=== PATIENT | male | born 1960 | race African-American/Black ===

== ENCOUNTER 2016-09-11 10:38 | Emergency (ER) | payer MEDICARE ==
[2016-09-11 11:00] VITALS: BP 119/88; PULSE 90; TEMP 97.8; BMI 27.3
[2016-09-11] MEDS ORDERED: NAPROXEN 500 MG TABLET (FP) PO ONE (12:41)
[2016-09-11] MEDS ORDERED: NAPROXEN 500 MG TABLET (FP) ONE (12:48)
--- NOTE | 2016-09-11 13:42 | PDOC ---
History of Present Illness - General Chief Complaint: Pain Stated Complaint: KNEE SWOLLEN, LEG PAIN Time Seen by Provider: 09/11/16 11:50 History Source: Patient Exam Limitations: No Limitations - History of Present Illness Initial Comments: 09/11/16 13:37 56 yr male with c/o left knee swelling and leg pain for 4 days. Pt denies direct injury, no calf pain or swelling. Pt denies abd pain no back pain or urianry complaints. no recent travel or surgery . Occurred: reports: last week Severity: reports: mild Pain Location: reports: lower extremity (left knee) Past History - Past Medical History Allergies/Adverse Reactions: Allergies Allergy/AdvReac Type Severity Reaction Status Date / Time No Known Drug Allergies Allergy Verified 09/11/16 10:56 Home Medications: Ambulatory Orders Linagliptin/Metformin HCl [Jentadueto 2.5 mg-850 mg Tab] 1 each PO BID 06/21/14 Sitagliptin Phosphate [Januvia] 50 mg PO DAILY 06/21/14 Diabetes: Yes (niddm) Kidney Stones: Yes Suicide Attempt (Hx): No Thyroid Disease: No Other medical history: [place] - Surgical History Abdominal Surgery: Yes (hernia) - Immunization History Immunization Up to Date: No - Psycho/Social/Smoking Cessation Hx Anxiety: No Suicidal Ideation: No Smoking History: Never smoked Have you smoked in the past 12 months: No Information on smoking cessation initiated: No Hx Alcohol Use: No Drug/Substance Use Hx: No Substance Use Type: Alcohol Trauma Specific PMHX - Complaint Specific PMHX Arthritis: No Back Injury: Yes (years ago) Review of Systems - Review of Systems Able to Perform ROS?: Yes Is the patient limited Kittitian proficient: No Constitutional: No: Symptoms Reported HEENTM: No: Symptoms Reported Respiratory: No: Symptoms reported Cardiac (ROS): No: Symptoms Reported ABD/GI: No: Symptoms Reported : No: Symptoms Reported Musculoskeletal: Yes: Symptoms Reported, See HPI *Physical Exam - Vital Signs Last Vital Signs Temp Pulse Resp BP Pulse Ox 97.8 F 90 18 119/88 100 09/11/16 10:56 09/11/16 10:56 09/11/16 10:56 09/11/16 10:56 09/11/16 10:56 - Physical Exam General Appearance: Yes: Nourished, Appropriately Dressed HEENT: positive: EOMI, JORDAN, Normal ENT Inspection, TMs Normal, Pharynx Normal Neck: positive: Supple. negative: Tender Respiratory/Chest: positive: Lungs Clear, Normal Breath Sounds Cardiovascular: positive: Regular Rhythm, Regular Rate Gastrointestinal/Abdominal: positive: Normal Bowel Sounds, Soft Musculoskeletal: positive: Normal Inspection Extremity: positive: Swelling (left knee ). negative: Pedal Edema, Calf Tenderness, Erythema Integumentary: positive: Normal Color, Dry, Warm Neurologic: positive: Fully Oriented, Alert, Normal Mood/Affect, Normal Response , Motor Strength / ED Treatment Course - RADIOLOGY Radiology Studies Ordered: Category Date Time Status KNEE 3 POS-LEFT [RAD] Stat Radiology 09/11/16 12:13 Completed DUPLEX VASCUL US-1 LEG [US] Stat Ultrasound 09/11/16 12:14 Completed - Medications Given in the ED: ED Medications Discontinued Medications Generic Name Dose Route Start Last Admin Trade Name Freq PRN Reason Stop Dose Admin Naproxen 500 mg 09/11/16 12:41 09/11/16 12:49 Naprosyn - PO 09/11/16 12:42 500 mg ONCE ONE Administration Medical Decision Making - Medical Decision Making 09/11/16 13:41 cc: left leg pain, left knee swelling will r/o DVT , r/o fx left knee naprosyn for pain 09/11/16 15:56 I have discussed the results of the US and the xray and that pt needs to follow with ortho . I have given pt a knee immmobilizer and states he needs to elevate and apply ice pt agrees with plan of care all questions asked and answered before discharge. pt ambulatory with the immobilizer no distress. follow up with ortho next week. pt understands the dc inst. 09/11/16 15:59 *DC/Admit/Observation/Transfer Diagnosis at time of Disposition: Knee effusion Qualifiers: Laterality: left Qualified Code(s): M25.462 - Effusion, left knee - Discharge Dispostion Disposition: HOME Condition at time of disposition: Good - Referrals Referrals: Kyle Preciado MD [Primary Care Provider] - Trung Galdamez MD [Staff Physician] - - Patient Instructions Additional Instructions: follow with the orthopedist for follow up take tylenol or motrin as directed for pain use the immobilizer while awake remove to sleep and bathe apply ice every 2hrs for 20 minutes
== END 2016-09-11 13:51 | disposition home or self-care (01) ==
LOC: JERFT 10:38
DX: M25.462 Effusion, left knee (principal); E11.9 Type 2 diabetes mellitus without complications; Z87.442 Personal history of urinary calculi
CPT/HCPCS: 73562-TC-LT; 93971-TC; 99281-25

== ENCOUNTER 2016-11-11 18:54 | Inpatient (IN) | payer MEDICARE, OTHER ==
[2016-11-11 19:28] VITALS: BMI 25.3
--- NOTE | 2016-11-11 22:12 | PDOC ---
[id number] PCP SENT/BLOOD CLOT Time Seen by Provider: 11/11/16 21:48 History Source: Patient - History of Present Illness Initial Comments: 11/11/16 22:25 56 year old male with S/P OPEN HEART SURGERY AVR on 10/12/2016 in [facility]. s/ p surgery with right groin worsening swelling. CT scan today showed large fluid collection in the right groin. patient sent in by Dr. Hernández for arterial duplex and admission for further management of care. patient reports right sided chest pain. denies headache, dizziness, SOB, fever, diaphoresis Past History - Past Medical History Allergies/Adverse Reactions: Allergies Allergy/AdvReac Type Severity Reaction Status Date / Time No Known Drug Allergies Allergy Verified 11/11/16 19:20 Home Medications: Ambulatory Orders Linagliptin/Metformin HCl [Jentadueto 2.5 mg-850 mg Tab] 2.5 - 1,000 mg PO BID 06/21/14 Sitagliptin Phosphate [Januvia] 100 mg PO DAILY 06/21/14 Aspirin [ASA -] 81 mg PO DAILY 11/12/16 Atorvastatin Ca [Lipitor] 10 mg PO HS 11/12/16 Metoprolol Succinate [Toprol Xl -] 25 mg PO DAILY 11/12/16 Pregabalin [Lyrica -] 75 mg PO BID 11/12/16 Cardiac Disorders: Yes (valve procedure 09/2016) Diabetes: Yes (niddm) Kidney Stones: Yes Suicide Attempt (Hx): No Thyroid Disease: No Other medical history: bulging disk - Surgical History Abdominal Surgery: Yes (hernia) - Immunization History Immunization Up to Date: No - Psycho/Social/Smoking Cessation Hx Anxiety: No Suicidal Ideation: No Smoking History: Never smoked Have you smoked in the past 12 months: No Hx Alcohol Use: No Drug/Substance Use Hx: No Substance Use Type: Alcohol Review of Systems - Review of Systems Able to Perform ROS?: Yes Is the patient limited Moh[place] proficient: No Constitutional: No: Symptoms Reported, See HPI, Chills, Diaphoresis, Fever, Loss of Appetite, Malaise, Night Sweats, Weakness, Weight Stable, Unintentional Wgt. Loss, Unexplained wgt Loss, Other Cardiac (ROS): Yes: Chest Pain, Edema (right groin swelling) *Physical Exam - Vital Signs Last Vital Signs Temp Pulse Resp BP Pulse Ox 98.4 F 83 18 120/64 99 11/11/16 19:17 11/11/16 19:17 11/11/16 19:17 11/11/16 19:17 11/11/16 19:17 - Physical Exam General Appearance: Yes: Appropriately Dressed Respiratory/Chest: positive: Lungs Clear, Normal Breath Sounds Cardiovascular: positive: Regular Rhythm, Regular Rate, Murmur Gastrointestinal/Abdominal: positive: Normal Bowel Sounds, Soft Extremity: positive: Normal Capillary Refill, Normal Inspection, Normal Range of Motion, Other (right groin edema.) Integumentary: positive: Normal Color, Dry, Warm Neurologic: positive: Fully Oriented, Alert, Normal Mood/Affect Heart Score/ECG Review - ECG Intrepretation Rhythm: Regular Rhythm Comment:: 11/12/16 00:20 NSR : 67 bpm possible left atrial enlargemtn. left ventricular hypertrophy. ED Treatment Course - LABORATORY CBC & Chemistry Diagram: 11/12/16 08:45 11/12/16 08:45 - RADIOLOGY Radiograph Interpretation: 11/12/16 00:10 Arterial duplex: nonspecific complex 10x7x5 cm right lower pelvic fluid collection. above the level of the common femoral artery extending at least partially into the pelvis. 11/12/16 02:53 CT pelvis: "large right inguinal and right pelvic rim enhancing fluid collection suspicious for abscess although neoplasm is not excluded. " Medical Decision Making - Medical Decision Making [address] Wilkinson. patient to be admitted for further management. recommends pelvic CT *DC/Admit/Observation/Transfer Diagnosis at time of Disposition: Right groin mass - Discharge Dispostion Disposition: TRANSFER ACUTE CARE/OTHER HOSP Admit: Yes - Referrals
--- NOTE | 2016-11-11 23:04 | PDOC ---
*Physical Exam - Vital Signs Last Vital Signs Temp Pulse Resp BP Pulse Ox 98.4 F 83 18 120/64 99 11/11/16 19:17 11/11/16 19:17 11/11/16 19:17 11/11/16 19:17 11/11/16 19:17 ED Treatment Course - LABORATORY CBC & Chemistry Diagram: 11/12/16 08:45 11/12/16 08:45 Medical Decision Making - Medical Decision Making 11/11/16 23:04 Pt seen by the Advanced Practice Provider under my direct supervision Ancillary studies reviewed I agree with plan as outlined by the Advanced Practice Provider RODRÍGUEZ Mera *DC/Admit/Observation/Transfer Diagnosis at time of Disposition: Right groin mass - Discharge Dispostion Disposition: TRANSFER ACUTE CARE/OTHER HOSP
[2016-11-11 23:55] LABS: BASOPHIL 1.2 % (0-2.0); EOSINOPHIL 3.6 % (0-4.5); MCH 27.9 pg (25.7-33.7); MCHC 32.9 g/dl (32.0-35.9); MEAN CELL VOLUME 84.7 fl (80-96); MEAN PLT VOLUME 8.4 fl (7.5-11.1); NEUTROPHILS 57.8 % (42.8-82.8); PLATELET COUNT 173 K/MM3 (134-434); RDW 14.7 % (11.9-15.9); WHITE BLOOD COUNT 5.8 K/mm3 (4.0-10.0)
[2016-11-12 00:09] LABS: INR 1.04 (0.82-1.09); PROTHROMBIN TIME (PATIENT) 11.5 SEC (9.98-11.88)
[2016-11-12 00:29] LABS: ALBUMIN 3.7 g/dl (3.4-5.0); ANION GAP 10 (8-16); BILIRUBIN,TOTAL 0.6 mg/dL (0.2-1.0); CALCIUM 9.3 mg/dL (8.5-10.1); CO2 28 mmol/L (21-32); COCKROFT - GAULT 85.72; GLUCOSE,RANDOM 89 mg/dL (74-106); MAGNESIUM 1.7 mg/dL (1.8-2.4); SGPT/ALT 11 U/L (12-78); TOT PROT 6.9 g/dl (6.4-8.2)
[2016-11-12 00:32] LABS: ALK PHOS 65 U/L (45-117); TROPONIN I < 0.02 ng/ml (0.00-0.05)
[2016-11-12 00:37] LABS: SGOT/AST 24 U/L (15-37)
[2016-11-12] MEDS: INSULIN SLIDING SCALE (NOVOLOG) 1 VIAL SQ SCH ×2 (06:35→11:30)
[2016-11-12] MEDS ORDERED: sitaGLIPtin PHOSPHATE 50 MG TABLET PO SCH (07:00)
--- NOTE | 2016-11-12 09:00 | PN ---
Progress Note (short form) - Note Progress Note: Consult Dictated Increasing swelling in right groin s/p AVR at [facility] CT and duplex US done: rim enhancing fluid collection in right inguinal area, does not appear to be pseudoaneurysm. No evidence vascular compromise on exam. REC: Case discussed with Interventional Cardiology at [place] To be transferred there with copies of US and CT to be reviewed with possible IR vs Surgical intervention for diagnosis/drainage. Discussed with patient.
[2016-11-12 09:12] LABS: BASOPHIL 0.7 % (0-2.0); EOSINOPHIL 3.1 % (0-4.5); MCH 28.5 pg (25.7-33.7); MCHC 33.9 g/dl (32.0-35.9); MEAN CELL VOLUME 84.1 fl (80-96); MEAN PLT VOLUME 8.2 fl (7.5-11.1); NEUTROPHILS 62.8 % (42.8-82.8); PLATELET COUNT 152 K/MM3 (134-434); RDW 14.6 % (11.9-15.9); WHITE BLOOD COUNT 5.3 K/mm3 (4.0-10.0)
[2016-11-12 09:39] LABS: ALBUMIN 3.5 g/dl (3.4-5.0); ANION GAP 9 (8-16); BILIRUBIN,TOTAL 0.6 mg/dL (0.2-1.0); CALCIUM 8.9 mg/dL (8.5-10.1); CO2 26 mmol/L (21-32); COCKROFT - GAULT 107.16; CREATININE 0.8 mg/dL (0.7-1.3); GLUCOSE,RANDOM 109 mg/dL (74-106); SGPT/ALT 12 U/L (12-78); TOT PROT 6.6 g/dl (6.4-8.2)
[2016-11-12 09:40] LABS: ALK PHOS 60 U/L (45-117); SGOT/AST 16 U/L (15-37)
--- NOTE | 2016-11-12 09:42 | CONS ---
CARDIOLOGY CONSULTATION DATE OF CONSULTATION: 11/12/2016 REQUESTED BY: Ania Estrada MD REASON FOR CONSULTATION: Fluid collection in the right inguinal region status post aortic valve surgery. HISTORY OF PRESENT ILLNESS: Mr. Tyson is a 56-year-old male status post bioprosthetic aortic valve replacement at [facility] who presented to primary care physician yesterday with increasing right inguinal fullness and swelling. An abdominal ultrasound had been performed in the office, indicating a fluid collection in the right groin. The patient was then referred to the emergency room for further imaging. Yesterday, in the ER he had a duplex scan of the lower extremity, duplex lower extremity arterial ultrasound showing a nonspecific 10 x 7 x 5 cm right lower pelvic fluid collection for which a pelvic CT was recommended. He then underwent a pelvic CT with contrast showing a large right inguinal and right pelvic rim- enhancing fluid collection measuring 9.6 x 4 cm. The differential diagnosis included an abscess versus a lymphocele versus a neoplasm. The patient has a normal white blood cell count and has been afebrile. He denies fevers or chills. He denies pain or temperature changes in his leg. He feels a fullness in the right groin and has been getting steadily worse, especially over the last 1-2 weeks. He denies anginal pain but has had some persistent sternal pain which has been worse over the last one week; denies shortness of breath, palpitations. No syncope. PAST MEDICAL HISTORY: As above. Status post aVR approximately 6-[address] [facility] for aortic regurgitation. He also is diabetic and has a history of hyperlipidemia. ALLERGIES: He has no allergies. HOME MEDICATIONS: Januvia 100 mg daily, Lyrica 75 mg p.o. b.i.d., Toprol XL 25 mg daily, Jentadueto, Lipitor 10 mg q h.s. and aspirin 81 mg daily. FAMILY HISTORY: Noncontributory to this presentation. SOCIAL HISTORY: . Has a daughter. Denies tobacco, alcohol or illegal drugs. PHYSICAL EXAM: General: Alert and oriented. Vital signs: Temperature 98 Fahrenheit, pulse 60, blood pressure 143/88. Oxygen saturation 100% on room air. Weight 162. HEENT: Anicteric. Neck no bruits. Heart: S1, S2/regular. Soft, systolic murmur right sternal border. The median sternotomy has a 1 cm area of non-healed skin at the very top. There is no pus currently and there is mild tenderness to palpation. Chest: Clear. Abdomen: Soft. The right groin is slightly full. Pulse is palpable. There is no bruit. The distal extremity is warm with good dorsalis pedis pulse. LABS: White count 5.8. Hematocrit 36.6. Platelets 173. Neutrophils 57.8. INR 1.04. Sodium 140. Potassium 147. Creatinine 1. Magnesium 1.7. LFTs were normal. CK and troponin normal. Albumin 3.7. Imaging is as above. EKG sinus at 67 beats per minute with left atrial enlargement, left ventricular hypertrophy and nonspecific T-wave changes. ASSESSMENT: Increasing right inguinal swelling status post aortic valve replacement with CT of the pelvis showing a large rim-enhancing lesion for which the differential includes abscess versus lymphocele versus malignancy. It does not appear to be a pseudoaneurysm, and there is no evidence of vascular compromise on exam. In addition, I have concern about the possibility of a sternal wound infection. PLAN: After discussion with Interventional Cardiology at [facility], the plan will be to make copies of his imaging studies and transfer him there for the studies to be reviewed with possible intervention: IR drain versus surgical exploration for diagnosis and possible evacuation. CT surgery to examine the sternal incision and decide on further imaging/ work up. MIKE LADD M.D. [id number] MTDD
--- NOTE | 2016-11-12 09:59 | CONSULT ---
Consult - Alcohol/Substance Use Hx Alcohol Use: No - Smoking History Smoking history: Never smoked Have you smoked in the past 12 months: No Home Medications - Allergies Allergies/Adverse Reactions: Allergies Allergy/AdvReac Type Severity Reaction Status Date / Time No Known Drug Allergies Allergy Verified 11/11/16 19:20 - Home Medications Home Medications: Ambulatory Orders Linagliptin/Metformin HCl [Jentadueto 2.5 mg-850 mg Tab] 2.5 - 1,000 mg PO BID 06/21/14 Sitagliptin Phosphate [Januvia] 100 mg PO DAILY 06/21/14 Aspirin [ASA -] 81 mg PO DAILY 11/12/16 Atorvastatin Ca [Lipitor] 10 mg PO HS 11/12/16 Metoprolol Succinate [Toprol Xl -] 25 mg PO DAILY 11/12/16 Pregabalin [Lyrica -] 75 mg PO BID 11/12/16 Physical Exam Vital Signs: Vital Signs Temperature 98 F 11/12/16 07:41 Pulse Rate 63 11/12/16 07:41 Respiratory Rate 20 11/12/16 07:59 Blood Pressure 143/88 11/12/16 07:41 O2 Sat by Pulse Oximetry (%) 100 11/12/16 07:59 Labs: CBC, BMP 11/12/16 08:45 11/12/16 08:45 Assessment/Plan VAscular Surgery 6 year old male with S/P OPEN HEART SURGERY AVR on 10/12/2016 in [facility]. s/ p surgery with right groin worsening swelling. CT scan today showed large fluid collection in the right groin. patient sent in by Dr. Hernández for arterial duplex and admission for further management of care. patient reports right sided chest pain. denies headache, dizziness, SOB, fever, diaphoresis Past History - Past Medical History Allergies/Adverse Reactions: Allergies Allergy/AdvReac Type Severity Reaction Status Date / Time No Known Drug Allergies Allergy Verified 11/11/16 19:20 Home Medications: Ambulatory Orders Linagliptin/Metformin HCl [Jentadueto 2.5 mg-850 mg Tab] 1 each PO BID 06/21/14 Sitagliptin Phosphate [Januvia] 50 mg PO DAILY 06/21/14 Cardiac Disorders: Yes (valve procedure 09/2016) Diabetes: Yes (niddm) Kidney Stones: Yes Suicide Attempt (Hx): No Thyroid Disease: No Other medical history: bulging disk - Surgical History Abdominal Surgery: Yes (hernia) - Immunization History Immunization Up to Date: No - Psycho/Social/Smoking Cessation Hx Anxiety: No Suicidal Ideation: No Smoking History: Never smoked Have you smoked in the past 12 months: No Hx Alcohol Use: No Drug/Substance Use Hx: No Substance Use Type: Alcohol PE Head - NC/At Lung - CTA heart - RRR abd - soft,nt,nd ext - right groin swelling. Palpable pulse. US reviewed -- no evidence of pseudoaneurysm. A/P S/P AVR Right groin swelling. US negative for pseudoaneurysm. Cardiology on case and transferring pt to [facility] for further workup. Alexx Crooks DO
[2016-11-12] MEDS ORDERED: PATIENT'S OWN MEDICATION (NON-FORMULARY) (Linagliptin/Metformin Hcl [Jentadueto 2.5 Mg-850 PO SCH (10:00)
--- NOTE | 2016-11-12 11:37 | EKG ---
Test Reason : Blood Pressure : / mmHG Vent. Rate : 067 BPM Atrial Rate : 067 BPM P-R Int : 166 ms QRS Dur : 084 ms QT Int : 420 ms P-R-T Axes : 062 -02 206 degrees QTc Int : 443 ms NORMAL SINUS RHYTHM POSSIBLE LEFT ATRIAL ENLARGEMENT LEFT VENTRICULAR HYPERTROPHY T WAVE ABNORMALITY, CONSIDER INFEROLATERAL ISCHEMIA ABNORMAL ECG WHEN COMPARED WITH ECG OF 21-JUN-2014 09:16, NO SIGNIFICANT CHANGE WAS FOUND Confirmed by FANNIE PERALTA, ÁNGEL ([id number]) on 11/12/2016 11:37:18 AM Referred By: Confirmed By:ÁNGEL GRECO MD
[2016-11-12 15:08] VITALS: BP 149/87; PULSE 67; TEMP 97
--- NOTE | 2016-11-13 09:30 | EKG ---
Test Reason : Blood Pressure : / mmHG Vent. Rate : 078 BPM Atrial Rate : 078 BPM P-R Int : 156 ms QRS Dur : 072 ms QT Int : 358 ms P-R-T Axes : 068 -14 214 degrees QTc Int : 408 ms NORMAL SINUS RHYTHM POSSIBLE LEFT ATRIAL ENLARGEMENT NONSPECIFIC T WAVE ABNORMALITY ABNORMAL ECG Confirmed by MIKE LADD MD ([id number]) on 11/13/2016 9:30:14 AM Referred By: Confirmed By:MIKE LADD MD
== END 2016-11-12 15:13 | disposition short-term general hospital (02) | DRG 315 ==
LOC: JER 18:54 → JERBED 11-12 00:52 → UNDOADMIN 11-12 01:07 → JERBED 11-12 01:07 → J8W 11-12 05:31
PROVIDERS: ADMIT Internal Medicine; ATTEND Internal Medicine
DX: I97.89 Other postprocedural complications and disorders of the circulatory system, not elsewhere classified (principal); L02.214 Cutaneous abscess of groin; E11.9 Type 2 diabetes mellitus without complications; N20.0 Calculus of kidney; Z95.1 Presence of aortocoronary bypass graft; Y83.8 Other surgical procedures as the cause of abnormal reaction of the patient, or of later complication, without mention of misadventure at the time of the procedure
CPT/HCPCS: 36415; 71020-TC; 72193-TC; 80053; 82550; 83735; 84484; 85025; 85610; 86850; 86900; 86901; 93005; 93010; 93926-TC; 99285-25

== ENCOUNTER 2017-03-09 20:37 | Emergency (ER) | payer MEDICARE, OTHER ==
[2017-03-09 20:48] VITALS: BP 175/84; PULSE 73; TEMP 98.4; BMI 27.6
[2017-03-09] MEDS ORDERED: ONDANSETRON 4 MG/2 ML VIAL IVPB ONE (20:53)
[2017-03-09] MEDS ORDERED: SODIUM CHLORIDE 1,000 ML IV STA (20:53)
[2017-03-09] MEDS ORDERED: ONDANSETRON 4 MG/2 ML VIAL ONE (21:23)
--- NOTE | 2017-03-09 21:35 | PDOC ---
History of Present Illness <Paradise Mera - Last Filed: 03/09/17 21:35> - General History Source: Patient Exam Limitations: No Limitations - History of Present Illness Initial Comments: 03/09/17 21:37 The patient is a 57 year old male with past medical history of NIDDM, hypertension and pancreatitis who presents to the ED with complaints of nausea, vomiting, and abdominal pain that began two days ago. He locates the pain to his left lower quadrant and reports he hasnt been able to hold down food. He also complains of epigastric pain that resembles heartburn. He states that his symptoms resemble those that he experienced when he had pancreatitis. He denies any diarrhea, constipation, hematemesis. He denies any chest pain, SOB, or urinary complaints. Surgeries: Aortic valve replacement in September 2016 Social: Last drink was yesterday PCP: Kyle Preciado Hide Curer: Thania Layton <Haley Caceres - Last Filed: 03/10/17 01:07> - General Chief Complaint: Pain Stated Complaint: ABDOMINAL PAIN/VOMITING/NAUSEA Time Seen by Provider: 03/09/17 20:43 Past History - Past Medical History Cardiac Disorders: Yes (valve procedure 09/2016) Diabetes: Yes (niddm) Kidney Stones: Yes Suicide Attempt (Hx): No Thyroid Disease: No - Surgical History Abdominal Surgery: Yes (hernia) - Immunization History Immunization Up to Date: No - Psycho/Social/Smoking Cessation Hx Anxiety: No Suicidal Ideation: No Smoking History: Never smoked Have you smoked in the past 12 months: No Information on smoking cessation initiated: No Hx Alcohol Use: No Drug/Substance Use Hx: No Substance Use Type: Alcohol Hx Substance Use Treatment: No <Paradise Mera - Last Filed: 03/09/17 21:35> <Haley Caceres - Last Filed: 03/10/17 01:07> - Past Medical History Allergies/Adverse Reactions: Allergies Allergy/AdvReac Type Severity Reaction Status Date / Time No Known Drug Allergies Allergy Verified 03/09/17 20:46 Home Medications: Ambulatory Orders Linagliptin/Metformin HCl [Jentadueto 2.5 mg-850 mg Tab] 2.5 - 1,000 mg PO BID 06/21/14 Sitagliptin Phosphate [Januvia] 100 mg PO DAILY 06/21/14 Aspirin [ASA -] 81 mg PO DAILY 11/12/16 Atorvastatin Ca [Lipitor] 10 mg PO HS 11/12/16 Metoprolol Succinate [Toprol Xl -] 25 mg PO DAILY 11/12/16 Pregabalin [Lyrica -] 75 mg PO BID 11/12/16 Review of Systems - Review of Systems Able to Perform ROS?: Yes Comments:: 03/09/17 21:39 CONSTITUTIONAL: Absent: fever, chills, diaphoresis, generalized weakness, malaise, loss of appetite HEENT: Absent: rhinorrhea, nasal congestion, throat pain, throat swelling, difficulty swallowing, mouth swelling, ear pain, eye pain, visual Changes CARDIOVASCULAR: Absent: chest pain, syncope, palpitations, irregular heart rate, lightheadedness , peripheral edema RESPIRATORY: Absent: cough, shortness of breath, dyspnea with exertion, orthopnea, wheezing, stridor, hemoptysis GASTROINTESTINAL: Present: abdominal pain, nausea, vomiting, epigastric pain, heartburn Absent:abdominal distension, diarrhea, constipation,melena, hematochezia GENITOURINARY: Absent: dysuria, frequency, urgency, hesitancy, hematuria, flank pain, genital pain MUSCULOSKELETAL: Absent: myalgia, arthralgia, joint swelling SKIN: Absent: rash, itching, pallor HEMATOLOGIC/IMMUNOLOGIC: Absent: easy bleeding, easy bruising, lymphadenopathy, frequent infections ENDOCRINE: Absent: unexplained weight gain, unexplained weight loss, heat intolerance, cold intolerance NEUROLOGIC: Absent: headache, focal weakness or paresthesias, dizziness, unsteady gait, seizure, mental status changes, bladder or bowel incontinence PSYCHIATRIC: Absent: anxiety, depression, suicidal or homicidal ideation, hallucinations. All Other Systems: Reviewed and Negative <Haley Caceres - Last Filed: 03/10/17 01:07> *Physical Exam - Vital Signs Last Vital Signs Temp Pulse Resp BP Pulse Ox 98.4 F 73 14 175/84 100 03/09/17 20:47 03/09/17 20:47 03/09/17 20:47 03/09/17 20:47 03/09/17 20:47 <Paradise Mera - Last Filed: 03/09/17 21:35> - Vital Signs Last Vital Signs Temp Pulse Resp BP Pulse Ox 98.4 F 73 14 175/84 100 03/09/17 20:47 03/09/17 20:47 03/09/17 20:47 03/09/17 20:47 03/09/17 20:47 - Physical Exam Comments: 03/09/17 21:40 GENERAL: Well developed, well nourished. Awake and alert. No acute distress. HEENT: Normocephalic, atraumatic. PERRLA, EOMI. No conjunctival pallor. Sclera are non- icteric. Moist mucous membranes. Oropharynx is clear. NECK: Supple. Full ROM. No JVD. Carotid pulses 2+ and symmetric, without bruits. No thyromegaly. No lymphadenopathy. CARDIOVASCULAR: Regular rate and rhythm. No murmurs, rubs, or gallops. Distal pulses are 2+ and symmetric. PULMONARY: No evidence of respiratory distress. Lungs clear to auscultation bilaterally. No wheezing, rales or rhonchi. ABDOMINAL: Soft. LUQ tenderness. Non-distended. No rebound or guarding. No organomegaly. Normoactive bowel sounds. MUSCULOSKELETAL Normal range of motion at all joints. No bony deformities or tenderness. No CVA tenderness. EXTREMITIES: No cyanosis. No clubbing. No edema. No calf tenderness. SKIN: Warm and dry. Normal capillary refill. No rashes. No jaundice. NEUROLOGICAL: Alert, awake, appropriate. Cranial nerves 2-12 intact. No deficits to light touch and temperature in face, upper extremities and lower extremities. No motor deficits in the in face, upper extremities and lower extremities. Normoreflexic in the upper and lower extremities. Normal speech. Toes are down-going bilaterally. Gait is normal without ataxia. PSYCHIATRIC: Cooperative. Good eye contact. Appropriate mood and affect. <Haley Caceres - Last Filed: 03/10/17 01:07> Heart Score/ECG Review - ECG Intrepretation Comment:: 03/09/17 23:58 ECG obtained at 21:33 normal sinus at 72 bpm possible left atrial enlargement, T wave abnormality <Haley Caceres - Last Filed: 03/10/17 01:07> ED Treatment Course - LABORATORY CBC & Chemistry Diagram: 03/09/17 21:15 03/09/17 21:15 - Medications Given in the ED: ED Medications Discontinued Medications Generic Name Dose Route Start Last Admin Trade Name Freq PRN Reason Stop Dose Admin Ondansetron HCl 4 mg 03/09/17 20:53 03/09/17 21:33 Zofran Injection IVPB 03/09/17 20:54 4 mg ONCE ONE Administration <Paradise Mera - Last Filed: 03/09/17 21:35> - LABORATORY CBC & Chemistry Diagram: 03/09/17 21:15 03/09/17 21:15 - RADIOLOGY Radiograph Interpretation: 03/10/17 01:06 Exam: Contrast-enhanced CT abdomen and pelvis Images: 481 Clinical indication: Left upper quadrant pain and vomiting. Findings: Multiple images are degraded by motion artifact. The lung bases are grossly clear. The upper abdominal viscera have a normal appearance. The adrenal glands are unremarkable. The kidneys have a normal appearance and enhance symmetrically. There is no evidence of urinary tract obstruction. The gastrointestinal tract does not appear obstructed. No thickened or dilated bowel is seen. The appendix has a normal appearance there is no mesenteric infiltration. The urinary bladder, prostate and seminal vesicles are unremarkable. Scarring is noted in the right groin. Surgical clips are noted in the right groin. No abdominal or pelvic adenopathy is seen. No lytic or blastic destructive osseous lesions are seen. Impression: No inflammatory process identified in the abdomen or pelvis. No abdominal mass, adenopathy or collection seen. No explanation seen for this patient's abdominal pain. THIS DOCUMENT HAS BEEN ELECTRONICALLY SIGNED Rocky Padilla M.D. - Medications Given in the ED: ED Medications Discontinued Medications Generic Name Dose Route Start Last Admin Trade Name Freq PRN Reason Stop Dose Admin Ondansetron HCl 4 mg 03/09/17 20:53 03/09/17 21:33 Zofran Injection IVPB 03/09/17 20:54 4 mg ONCE ONE Administration <Haley Caceres - Last Filed: 03/10/17 01:07> *DC/Admit/Observation/Transfer <Paradise Mera - Last Filed: 03/09/17 21:35> - Attestations Scribe Attestion: 03/09/17 21:41 Documentation prepared by Haley Caceres, acting as medical diagnostic radiographer for Paradise Mera MD. <Haley Caceres - Last Filed: 03/10/17 01:07> - Referrals Referrals: Kyle Preciado MD [Primary Care Provider] -
[2017-03-09 21:36] LABS: BASOPHIL 0.2 % (0-2.0); EOSINOPHIL 0.4 % (0-4.5); MCH 30.5 pg (25.7-33.7); MCHC 35.6 g/dl (32.0-35.9); MEAN CELL VOLUME 85.5 fl (80-96); NEUTROPHILS 86.7 % (42.8-82.8); PLATELET COUNT 109 K/MM3 (134-434); RDW 17.3 % (11.9-15.9); WHITE BLOOD COUNT 5.7 K/mm3 (4.0-10.0)
[2017-03-09] MEDS ORDERED: HYDROmorphone HCL CARPU-JECT 1 MG/1 ML DISP.SYRIN IVPUSH ONE (22:01)
[2017-03-09] MEDS ORDERED: HYDROmorphone HCL CARPU-JECT 1 MG/1 ML DISP.SYRIN ONE (22:04)
[2017-03-09 22:14] LABS: ALBUMIN 4.1 g/dl (3.4-5.0); ALK PHOS 57 U/L (45-117); ANION GAP 5 (8-16); BILIRUBIN,TOTAL 1.8 mg/dL (0.2-1.0); CALCIUM 9.2 mg/dL (8.5-10.1); CO2 30 mmol/L (21-32); CREATININE 0.9 mg/dL (0.7-1.3); GLUCOSE,RANDOM 153 mg/dL (74-106); SGOT/AST 31 U/L (15-37); SGPT/ALT 23 U/L (12-78); TOT PROT 7.2 g/dl (6.4-8.2)
[2017-03-09 22:16] LABS: CPK 405 IU/L (39-308); TROPONIN I < 0.02 ng/ml (0.00-0.05)
[2017-03-09] MEDS ORDERED: ACETAMINOPHEN 500 MG TABLET (FP) PO STA (23:04)
[2017-03-09] MEDS ORDERED: MAG HYDROX/AL HYDROX/SIMETH 355 ML ORAL.SUSP PO ONE (23:06)
[2017-03-09] MEDS ORDERED: ACETAMINOPHEN 325 MG TABLET (FP) ONE (23:26)
[2017-03-10 04:07] LABS: CPK 318 IU/L (39-308); TROPONIN I < 0.02 ng/ml (0.00-0.05)
--- NOTE | 2017-03-10 04:46 | PDOC ---
*Physical Exam - Vital Signs Last Vital Signs Temp Pulse Resp BP Pulse Ox 98.4 F 73 14 175/84 100 03/09/17 20:47 03/09/17 20:47 03/09/17 20:47 03/09/17 20:47 03/09/17 20:47 ED Treatment Course - LABORATORY CBC & Chemistry Diagram: 03/09/17 21:15 03/09/17 21:15 - ADDITIONAL ORDERS Additional order review: Laboratory Results 03/10/17 03/09/17 03/09/17 03:03 21:15 21:15 Sodium Potassium Chloride Carbon Dioxide Anion Gap BUN Creatinine Creat Clearance w eGFR Random Glucose Lactic Acid 1.4 Calcium Total Bilirubin AST ALT Alkaline Phosphatase Creatine Kinase 318 H 405 H Creatine Kinase Index 0.7 0.6 CK-MB (CK-2) 2.297 2.820 Troponin I < 0.02 < 0.02 Total Protein Albumin Lipase 03/09/17 21:15 Sodium 138 Potassium 4.3 Chloride 103 Carbon Dioxide 30 Anion Gap 5 L BUN 9 Creatinine 0.9 Creat Clearance w eGFR > 60 Random Glucose 153 H D Lactic Acid Calcium 9.2 Total Bilirubin 1.8 H D AST 31 D ALT 23 D Alkaline Phosphatase 57 Creatine Kinase Creatine Kinase Index CK-MB (CK-2) Troponin I Total Protein 7.2 Albumin 4.1 Lipase 63 L 03/09/17 21:15 RBC 3.89 L MCV 85.5 MCHC 35.6 RDW 17.3 H D MPV 8.0 Neutrophils % 86.7 H D Lymphocytes % 6.9 L D Monocytes % 5.8 Eosinophils % 0.4 D Basophils % 0.2 - Medications Given in the ED: ED Medications Discontinued Medications Generic Name Dose Route Start Last Admin Trade Name Paulinoq PRN Reason Stop Dose Admin Acetaminophen 975 mg 03/09/17 23:04 03/09/17 23:29 Tylenol - PO 03/09/17 23:05 975 mg ONCE STA Administration Al Hydroxide/Mg Hydroxide 30 ml 03/09/17 23:06 03/09/17 23:29 Mylanta Suspension - PO 03/09/17 23:07 30 ml ONCE ONE Administration Hydromorphone HCl 0.5 mg 03/09/17 22:01 03/09/17 22:14 Dilaudid Injection - IVPUSH 03/09/17 22:02 0.5 mg ONCE ONE Administration Sodium Chloride 1,000 mls @ 1,000 mls/hr 03/09/17 20:53 03/09/17 21:32 Normal Saline - IV 03/09/17 21:52 1,000 mls/hr ASDIR STA Administration Ondansetron HCl 4 mg 03/09/17 20:53 03/09/17 21:33 Zofran Injection IVPB 03/09/17 20:54 4 mg ONCE ONE Administration *DC/Admit/Observation/Transfer Diagnosis at time of Disposition: Abdominal pain Qualifiers: Abdominal location: generalized Qualified Code(s): R10.84 - Generalized abdominal pain - Discharge Dispostion Disposition: HOME Condition at time of disposition: Stable Admit: No - Referrals Referrals: Kyle Preciado MD [Primary Care Provider] - - Patient Instructions Printed Discharge Instructions: DI for Abdominal Pain-Adult - Post Discharge Activity
--- NOTE | 2017-03-10 14:41 | EKG ---
Test Reason : Blood Pressure : / mmHG Vent. Rate : 072 BPM Atrial Rate : 072 BPM P-R Int : 148 ms QRS Dur : 080 ms QT Int : 406 ms P-R-T Axes : 077 010 226 degrees QTc Int : 444 ms NORMAL SINUS RHYTHM POSSIBLE LEFT ATRIAL ENLARGEMENT T WAVE ABNORMALITY, CONSIDER INFERIOR ISCHEMIA T WAVE ABNORMALITY, CONSIDER ANTEROLATERAL ISCHEMIA ABNORMAL ECG WHEN COMPARED WITH ECG OF 11-NOV-2016 23:56, T WAVE INVERSION MORE EVIDENT IN INFERIOR LEADS T WAVE INVERSION NOW EVIDENT IN ANTERIOR LEADS Confirmed by LISA NEFF MD ([id number]) on 03/10/2017 2:41:32 PM Referred By: Confirmed By:LISA NEFF MD
== END 2017-03-10 05:01 | disposition home or self-care (01) ==
LOC: JER 20:37
PROC: 3E033NZ Introduction of Analgesics, Hypnotics, Sedatives into Peripheral Vein, Percutaneous Approach (ICD-10-PCS; principal; 2017-03-09)
PROC: 3E033GC Introduction of Other Therapeutic Substance into Peripheral Vein, Percutaneous Approach (ICD-10-PCS; 2017-03-09)
PROC: 3E0337Z Introduction of Electrolytic and Water Balance Substance into Peripheral Vein, Percutaneous Approach (ICD-10-PCS; 2017-03-09)
DX: R10.84 Generalized abdominal pain (principal); I10 Essential (primary) hypertension; E11.9 Type 2 diabetes mellitus without complications; Z87.19 Personal history of other diseases of the digestive system; Z87.442 Personal history of urinary calculi; Z79.82 Long term (current) use of aspirin; Z79.84 Long term (current) use of oral hypoglycemic drugs
CPT/HCPCS: 36415; 74177-TC; 80053; 82553; 83605; 83690; 84484; 85025; 93005; 93010; 99283-25

== ENCOUNTER 2017-06-28 14:36 | Inpatient (IN) | payer MEDICARE, OTHER ==
[2017-06-28] MEDS ORDERED: ONDANSETRON 4 MG/2 ML VIAL IVPUSH ONE (15:58)
[2017-06-28] MEDS ORDERED: KETOROLAC TROMETHAMINE 30 MG/1 ML VIAL IM ONE (15:58)
[2017-06-28] MEDS ORDERED: SODIUM CHLORIDE 1,000 ML IV STA ×3 (15:59→22:04)
--- NOTE | 2017-06-28 16:01 | PDOC ---
History of Present Illness - General Chief Complaint: Pain Stated Complaint: ABD PAIN Time Seen by Provider: 06/28/17 15:54 History Source: Patient - History of Present Illness Timing/Duration: reports: constant Quality: reports: severe Abdominal Pain Onset Location: reports: generalized abdomen Past History - Past Medical History Allergies/Adverse Reactions: Allergies Allergy/AdvReac Type Severity Reaction Status Date / Time No Known Drug Allergies Allergy Verified 06/28/17 14:46 Home Medications: Ambulatory Orders Jentadueto 2.5 mg-500 mg Tab PO BID 06/29/17 Metoprolol Succinate [Toprol XL -] 12.5 mg PO DAILY 06/29/17 Cardiac Disorders: Yes (valve procedure 09/2016) COPD: No Diabetes: Yes (niddm) HTN: Yes Hypercholesterolemia: Yes Kidney Stones: Yes Thyroid Disease: No - Surgical History Abdominal Surgery: Yes (hernia) Cardiac Surgery: Yes (09/18) - Immunization History Immunization Up to Date: No - Suicide/Smoking/Psychosocial Hx Smoking History: Never smoked Have you smoked in the past 12 months: No Hx Alcohol Use: No Drug/Substance Use Hx: No Substance Use Type: Alcohol Hx Substance Use Treatment: No Review of Systems - Review of Systems Constitutional: No: Chills, Fever Respiratory: No: Shortness of Breath Cardiac (ROS): No: Chest Pain ABD/GI: Yes: Nausea, Vomiting, Abdominal cramping. No: Diarrhea : No: Dysuria *Physical Exam - Vital Signs Last Vital Signs Temp Pulse Resp BP Pulse Ox 98 F 74 18 132/72 99 06/28/17 14:47 06/28/17 14:47 06/28/17 14:47 06/28/17 14:47 06/28/17 14:47 - Physical Exam General Appearance: Yes: Appropriately Dressed, Mild Distress HEENT: positive: Normal Voice Neck: positive: Supple Respiratory/Chest: positive: Lungs Clear, Normal Breath Sounds. negative: Respiratory Distress Cardiovascular: positive: Regular Rate, S1, S2 Gastrointestinal/Abdominal: positive: Normal Bowel Sounds, Tender (poorly localized ttp), Soft. negative: Guarding, Rebound Musculoskeletal: negative: CVA Tenderness Integumentary: positive: Dry, Warm Neurologic: positive: Fully Oriented, Alert, Normal Mood/Affect ED Treatment Course - LABORATORY CBC & Chemistry Diagram: 06/29/17 08:25 06/29/17 08:25 Medical Decision Making - Medical Decision Making 06/28/17 15:59 57-year-old male history of NIDDM, CABG, alcohol abuse, recurrent pancreatitis, here with diffuse abdominal pain with nausea, vomiting 3 days. No changes in BM , f/c. States symptoms similar to his pancreatitis, which he has not had in several years despite continuing to drink. Denies history of gallstones. No abdominal surgeries in the past. Was seen for similar symptoms ~3 months ago and sent home w/ protonix and zofran. CT a/p was negative at the time See exam Recurrent pancreatitis vs gastritis H/o ETOH abuse -pain control -zofran -IVF -labs -US -dispo pending 06/28/17 19:00 Lactate erroneously ordered on pt but came back at 2.4. Of note, there was no concern for sepsis in this pt. Rest of labs and UA negative. US pending. Will give IVF and rpt lactate. Pt signed out to RODRÍGUEZ Mera at this point *DC/Admit/Observation/Transfer Diagnosis at time of Disposition: Lactic acidosis Abdominal pain Qualifiers: Abdominal location: epigastric Qualified Code(s): R10.13 - Epigastric pain - Referrals - Patient Instructions - Post Discharge Activity
[2017-06-28] MEDS ORDERED: KETOROLAC TROMETHAMINE 30 MG/1 ML VIAL ONE (16:38)
[2017-06-28] MEDS ORDERED: ONDANSETRON 4 MG/2 ML VIAL ONE (16:38)
[2017-06-28] MEDS ORDERED: KETOROLAC TROMETHAMINE 30 MG/1 ML VIAL IVPUSH ONE (17:00)
--- NOTE | 2017-06-28 17:03 | PDOC ---
*Physical Exam - Vital Signs Last Vital Signs Temp Pulse Resp BP Pulse Ox 98 F 74 18 132/72 99 06/28/17 14:47 06/28/17 14:47 06/28/17 14:47 06/28/17 14:47 06/28/17 14:47 Medical Decision Making - Medical Decision Making 06/28/17 17:03 Pt seen by the Advanced Practice Provider under my direct supervision Ancillary studies reviewed I agree with plan as outlined by the Advanced Practice Provider OUMOU Sky *DC/Admit/Observation/Transfer - Referrals Referrals: Kyle Preciado MD [Primary Care Provider] - - Patient Instructions - Post Discharge Activity
[2017-06-28 17:08] LABS: BASOPHIL 0.4 % (0-2.0); EOSINOPHIL 0.4 % (0-4.5); MCH 32.1 pg (25.7-33.7); MEAN CELL VOLUME 91.9 fl (80-96); MEAN PLT VOLUME 8.5 fl (7.5-11.1); NEUTROPHILS 87.1 % (42.8-82.8); PLATELET COUNT 111 K/MM3 (134-434); RDW 15.6 % (11.9-15.9)
[2017-06-28 17:39] LABS: ALBUMIN 4.4 g/dl (3.4-5.0); ANION GAP 7 (8-16); CO2 27 mmol/L (21-32); CREATININE 1.1 mg/dL (0.7-1.3); GLUCOSE,RANDOM 208 mg/dL (74-106); SGOT/AST 27 U/L (15-37); SGPT/ALT 26 U/L (12-78)
[2017-06-28] MEDS ORDERED: FAMOTIDINE IV 20 MG in DEXTROSE 5%-WATER - 100 ML IVPB ONE (17:40)
[2017-06-28 17:41] LABS: ALK PHOS 57 U/L (45-117); BILIRUBIN,TOTAL 1.1 mg/dL (0.2-1.0); TOT PROT 8.1 g/dl (6.4-8.2)
[2017-06-28] MEDS ORDERED: MAG HYDROX/AL HYDROX/SIMETH 355 ML ORAL.SUSP PO ONE (17:41)
[2017-06-28 17:55] LABS: URINE APPEARANCE CLEAR; URINE BILIRUBIN NEGATIVE (NEGATIVE); URINE BLOOD NEGATIVE (NEGATIVE); URINE COLOR LTYELLOW; URINE GLUCOSE (UA) 3+ (NEGATIVE); URINE KETONE NEGATIVE (NEGATIVE); URINE NITRITE NEGATIVE (NEGATIVE); URINE UROBILINOGEN NEGATIVE mg/dL (0.2-1.0)
[2017-06-28] MEDS ORDERED: FAMOTIDINE 20 MG/50 ML IVPB 20 MG/50 ML MG IVPB ONE (18:14)
[2017-06-28 18:18] LABS: URINE PROTEIN 2+ (NEGATIVE)
--- NOTE | 2017-06-28 19:28 | PDOC ---
*Physical Exam - Vital Signs Last Vital Signs Temp Pulse Resp BP Pulse Ox 98 F 74 18 132/72 99 06/28/17 14:47 06/28/17 14:47 06/28/17 14:47 06/28/17 14:47 06/28/17 14:47 - Physical Exam General Appearance: Yes: Mild Distress Respiratory/Chest: positive: Lungs Clear, Normal Breath Sounds Cardiovascular: positive: Regular Rhythm, Regular Rate Gastrointestinal/Abdominal: positive: Normal Bowel Sounds, Tender (LUQ/ Left Mid quadrant pain) Extremity: positive: Normal Capillary Refill, Normal Inspection, Normal Range of Motion ED Treatment Course - LABORATORY CBC & Chemistry Diagram: 06/28/17 17:00 06/28/17 17:00 - ADDITIONAL ORDERS Additional order review: Laboratory Results 06/28/17 06/28/17 06/28/17 17:00 17:00 16:59 Sodium 138 Potassium 4.1 Chloride 104 Carbon Dioxide 27 Anion Gap 7 L BUN 13 D Creatinine 1.1 D Creat Clearance w eGFR > 60 Random Glucose 208 H D Lactic Acid 2.4 H* Calcium 9.0 Total Bilirubin 1.1 H D AST 27 ALT 26 Alkaline Phosphatase 57 Total Protein 8.1 Albumin 4.4 Lipase 126 Urine Color Urine Appearance Urine pH Ur Specific Ione Urine Protein Urine Glucose (UA) Urine Ketones Urine Blood Urine Nitrite Urine Bilirubin Urine Urobilinogen 06/28/17 16:59 Sodium Potassium Chloride Carbon Dioxide Anion Gap BUN Creatinine Creat Clearance w eGFR Random Glucose Lactic Acid Calcium Total Bilirubin AST ALT Alkaline Phosphatase Total Protein Albumin Lipase Urine Color Ltyellow Urine Appearance Clear Urine pH 7.0 D Ur Specific Ione 1.012 Urine Protein 2+ H Urine Glucose (UA) 3+ H Urine Ketones Negative Urine Blood Negative Urine Nitrite Negative Urine Bilirubin Negative Urine Urobilinogen Negative 06/28/17 17:00 RBC 3.94 L MCV 91.9 MCHC 35.0 RDW 15.6 MPV 8.5 Neutrophils % 87.1 H Lymphocytes % 8.2 Monocytes % 3.9 Eosinophils % 0.4 Basophils % 0.4 - Medications Given in the ED: ED Medications Discontinued Medications Generic Name Dose Route Start Last Admin Trade Name Freq PRN Reason Stop Dose Admin Sodium Chloride 1,000 mls @ 1,000 mls/hr 06/28/17 15:59 06/28/17 17:02 Normal Saline - IV 06/28/17 16:58 1,000 mls/hr ASDIR STA Administration Ketorolac Tromethamine 30 mg 06/28/17 15:58 06/28/17 17:01 Toradol Injection - IM 06/28/17 15:59 Not Given ONCE ONE Ketorolac Tromethamine 30 mg 06/28/17 17:00 06/28/17 16:54 Toradol Injection - IVPUSH 06/28/17 17:01 30 mg ONCE ONE Administration Ondansetron HCl 4 mg 06/28/17 15:58 06/28/17 16:52 Zofran Injection IVPUSH 06/28/17 15:59 4 mg ONCE ONE Administration Medical Decision Making - Medical Decision Making 06/28/17 20:09 Patient is complaining of LUQ/ Left side pain that hasn't improved. U/S + fatty liver, pancreas not visualized. patient reports everyday alcohol intake. Lipase WNL. will CTAP to r/o pancreatitis. 06/28/17 22:09 Lactic acid : 7.1 NS bolus CTAP pending. Lactic acid elevated. patient to be admitted for hydration. empirically covered with zosyn. patient signed out to Dr. Meneses. *DC/Admit/Observation/Transfer Diagnosis at time of Disposition: Lactic acidosis Abdominal pain Qualifiers: Abdominal location: epigastric Qualified Code(s): R10.13 - Epigastric pain - Discharge Dispostion Admit: Yes - Referrals - Patient Instructions - Post Discharge Activity
[2017-06-28 20:56] LABS: URINE LEUK ESTERASE Negative (NEGATIVE)
[2017-06-29] MEDS ORDERED: morphine CARPU-JECT 4 MG/1 ML DISP.SYRIN IVPUSH ONE (00:23)
[2017-06-29] MEDS ORDERED: morphine SULFATE 4 MG/ML VIAL ONE (00:27)
[2017-06-29] MEDS ORDERED: SODIUM CHLORIDE 1,000 ML IV SCH (00:45)
[2017-06-29] MEDS ORDERED: PIPERACIL/TAZOB 3.375 GM 3.375 GM/50 ML PREMIX IVPB ONE (00:57)
[2017-06-29] MEDS ORDERED: ONDANSETRON 4 MG/2 ML VIAL IVPUSH PRN (02:12)
[2017-06-29] MEDS ORDERED: morphine SULFATE 4 MG/ML VIAL IVPUSH PRN (02:13)
[2017-06-29] MEDS: PANTOPRAZOLE 40 MG TABLET (FP) PO SCH ×2 (03:51→09:53)
[2017-06-29] MEDS: THIAMINE HCL 100 MG TABLET (FP) PO SCH ×2 (03:51→09:52)
[2017-06-29] MEDS: DEXTROSE 5%-0.45% SALINE 1,000 ML IV SCH ×2 (03:51→18:45)
[2017-06-29] MEDS: FOLIC ACID 1 MG TABLET (FP) PO SCH ×2 (03:51→09:53)
[2017-06-29 07:08] VITALS: BMI 29.0
[2017-06-29 09:11] LABS: BASOPHIL 0.4 % (0-2.0); EOSINOPHIL 0.8 % (0-4.5); MCHC 34.5 g/dl (32.0-35.9); MEAN CELL VOLUME 92.7 fl (80-96); MEAN PLT VOLUME 8.6 fl (7.5-11.1); NEUTROPHILS 70.5 % (42.8-82.8); PLATELET COUNT 104 K/MM3 (134-434); RDW 15.9 % (11.9-15.9); WHITE BLOOD COUNT 4.2 K/mm3 (4.0-10.0)
[2017-06-29 09:53] LABS: ALBUMIN 3.8 g/dl (3.4-5.0); ALK PHOS 50 U/L (45-117); ANION GAP 7 (8-16); CALCIUM 8.2 mg/dL (8.5-10.1); CO2 27 mmol/L (21-32); CREATININE 1.1 mg/dL (0.7-1.3); GLUCOSE,RANDOM 149 mg/dL (74-106); SGOT/AST 26 U/L (15-37); SGPT/ALT 21 U/L (12-78); TOT PROT 6.9 g/dl (6.4-8.2)
[2017-06-29] MEDS ORDERED: PIPERACILLIN/TAZOB 3.375 GM 50 ML IVPB SCH (10:00)
--- NOTE | 2017-06-29 11:49 | CONSULT ---
Consultation: REQUESTING PROVIDER: CONSULT REQUEST: We have been asked to medically evaluate this patient for lactic acidosis. HISTORY OF PRESENT ILLNESS: 57M w/ hx of recurrent pancreatitis, significant alcohol consumption, umbilical hernia repair, nephrolithiasis, HTN, HLD, and NIDDM who presents with 3 days of diffuse abdominal pain. Pt reports that the pain started when he took a bus from [place] to [place] 3 days ago. He states that the pain is diffuse, non- radiating, 10/10, and constant. It is accompanied by nausea and 10 episodes of non-bloody yellow emesis. Pt denies recent consumption of spoiled foods, sick contacts, fevers, chills, SOB, chest pain, decreased appetite, constipation, diarrhea, and dysuria. Of note, pt presented to the hospital 3 months ago for abdominal pain, and was sent home on protonix and zofran. His last episode of pancreatitis was over 10 years ago. REVIEW OF SYSTEMS: CONSTITUTIONAL: Absent: fever, chills, diaphoresis, generalized weakness, malaise, loss of appetite, weight change HEENT: Absent: rhinorrhea, nasal congestion, throat pain, throat swelling, difficulty swallowing, mouth swelling, ear pain, eye pain, visual changes CARDIOVASCULAR: Absent: chest pain, syncope, palpitations, irregular heart rate, lightheadedness , peripheral edema RESPIRATORY: Absent: cough, shortness of breath, dyspnea with exertion, orthopnea, wheezing, stridor, hemoptysis GASTROINTESTINAL: Absent: diarrhea, constipation, melena, hematochezia present: abdominal pain, nausea, vomiting GENITOURINARY: Absent: dysuria, frequency, urgency, hesitancy, hematuria, flank pain, genital pain MUSCULOSKELETAL: Absent: myalgia, arthralgia, joint swelling, back pain, neck pain SKIN: Absent: rash, itching, pallor HEMATOLOGIC/IMMUNOLOGIC: Absent: easy bleeding, easy bruising, lymphadenopathy, frequent infections ENDOCRINE: Absent: unexplained weight gain, unexplained weight loss, heat intolerance, cold intolerance NEUROLOGIC: Absent: headache, focal weakness or paresthesias, dizziness, unsteady gait, seizure, mental status changes, bladder or bowel incontinence PSYCHIATRIC: Absent: anxiety, depression, suicidal or homicidal ideation, hallucinations. PHYSICAL EXAMINATION Vital Signs - 24 hr 06/28/17 06/29/17 06/29/17 14:47 04:02 07:03 Temperature 98 F 98.8 F 98 F Pulse Rate 74 73 Pulse Rate [ 72 Apical] Respiratory 18 20 18 Rate Blood Pressure 132/72 148/89 Blood Pressure 154/93 [Right Arm] O2 Sat by Pulse 99 100 Oximetry (%) 06/29/17 09:44 Temperature 97.6 F Pulse Rate 68 Pulse Rate [ Apical] Respiratory 20 Rate Blood Pressure 153/82 Blood Pressure [Right Arm] O2 Sat by Pulse Oximetry (%) GENERAL: Awake, alert, and fully oriented, in no acute distress. HEAD: Normal with no signs of trauma. EYES: Pupils equal, round and reactive to light, extraocular movements intact, sclera anicteric, conjunctiva clear. No lid lag. EARS, NOSE, THROAT: Ears normal, nares patent, oropharynx clear without exudates. Moist mucous membranes. NECK: Normal range of motion, supple without lymphadenopathy, JVD, or masses. LUNGS: Breath sounds equal, clear to auscultation bilaterally. No wheezes, and no crackles. No accessory muscle use. HEART: Regular rate and rhythm, normal S1 and S2 without murmur, rub or gallop. ABDOMEN: mildly distended, normoactive BS, diffuse mild tenderness to palpation , no hepatomegaly, no peritoneal signs MUSCULOSKELETAL: Normal range of motion at all joints. No bony deformities or tenderness. No CVA tenderness. UPPER EXTREMITIES: 2+ pulses, warm, well-perfused. No cyanosis. No clubbing. Cap refill <2 seconds. No peripheral edema. LOWER EXTREMITIES: 2+ pulses, warm, well-perfused. No calf tenderness. No peripheral edema. NEUROLOGICAL: Cranial nerves II-XII intact. Normal speech. Normal gait. PSYCHIATRIC: Cooperative. Good eye contact. Appropriate mood and affect. SKIN: Warm, dry, normal turgor, no rashes or lesions noted. Laboratory Results - last 24 hr 06/28/17 06/28/17 06/28/17 16:59 16:59 17:00 WBC 7.0 RBC 3.94 L Hgb 12.6 Hct 36.2 MCV 91.9 MCH 32.1 MCHC 35.0 RDW 15.6 Plt Count 111 L MPV 8.5 Neutrophils % 87.1 H Lymphocytes % 8.2 Monocytes % 3.9 Eosinophils % 0.4 Basophils % 0.4 Sodium Potassium Chloride Carbon Dioxide Anion Gap BUN Creatinine Creat Clearance w eGFR Random Glucose Lactic Acid Calcium Total Bilirubin AST ALT Alkaline Phosphatase Creatine Kinase Creatine Kinase Index CK-MB (CK-2) Total Protein Albumin Lipase 126 Urine Color Ltyellow Urine Appearance Clear Urine pH 7.0 D Ur Specific [place] 1.012 Urine Protein 2+ H Urine Glucose (UA) 3+ H Urine Ketones Negative Urine Blood Negative Urine Nitrite Negative Urine Bilirubin Negative Urine Urobilinogen Negative Ur Leukocyte Esterase Negative 06/28/17 06/28/17 06/28/17 17:00 17:00 21:10 WBC RBC Hgb Hct MCV MCH MCHC RDW Plt Count MPV Neutrophils % Lymphocytes % Monocytes % Eosinophils % Basophils % Sodium 138 Potassium 4.1 Chloride 104 Carbon Dioxide 27 Anion Gap 7 L BUN 13 D Creatinine 1.1 D Creat Clearance w eGFR > 60 Random Glucose 208 H D Lactic Acid 2.4 H* 7.1 H* Calcium 9.0 Total Bilirubin 1.1 H D AST 27 ALT 26 Alkaline Phosphatase 57 Creatine Kinase Creatine Kinase Index CK-MB (CK-2) Total Protein 8.1 Albumin 4.4 Lipase Urine Color Urine Appearance Urine pH Ur Specific [place] Urine Protein Urine Glucose (UA) Urine Ketones Urine Blood Urine Nitrite Urine Bilirubin Urine Urobilinogen Ur Leukocyte Esterase 06/28/17 06/29/17 06/29/17 22:52 04:22 08:25 WBC 4.2 D RBC 3.80 L Hgb 12.2 Hct 35.2 L MCV 92.7 MCH 32.0 MCHC 34.5 RDW 15.9 Plt Count 104 L MPV 8.6 Neutrophils % 70.5 Lymphocytes % 20.2 D Monocytes % 8.1 D Eosinophils % 0.8 D Basophils % 0.4 Sodium Potassium Chloride Carbon Dioxide Anion Gap BUN Creatinine Creat Clearance w eGFR Random Glucose Lactic Acid 1.4 Calcium Total Bilirubin AST ALT Alkaline Phosphatase Creatine Kinase 271 Creatine Kinase Index 1.3 CK-MB (CK-2) 3.710 H Total Protein Albumin Lipase Urine Color Urine Appearance Urine pH Ur Specific [place] Urine Protein Urine Glucose (UA) Urine Ketones Urine Blood Urine Nitrite Urine Bilirubin Urine Urobilinogen Ur Leukocyte Esterase 06/29/17 08:25 WBC RBC Hgb Hct MCV MCH MCHC RDW Plt Count MPV Neutrophils % Lymphocytes % Monocytes % Eosinophils % Basophils % Sodium 140 Potassium 3.9 Chloride 106 Carbon Dioxide 27 Anion Gap 7 L BUN 12 Creatinine 1.1 Creat Clearance w eGFR > 60 Random Glucose 149 H D Lactic Acid Calcium 8.2 L Total Bilirubin 1.0 AST 26 ALT 21 Alkaline Phosphatase 50 Creatine Kinase Creatine Kinase Index CK-MB (CK-2) Total Protein 6.9 Albumin 3.8 Lipase Urine Color Urine Appearance Urine pH Ur Specific [place] Urine Protein Urine Glucose (UA) Urine Ketones Urine Blood Urine Nitrite Urine Bilirubin Urine Urobilinogen Ur Leukocyte Esterase Active Medications Generic Name Dose Route Start Last Admin Trade Name Freq PRN Reason Stop Dose Admin Folic Acid 1 mg 06/29/17 02:15 06/29/17 09:53 Folic Acid - PO Not Given DAILY ANISHA Sodium Chloride 1,000 mls @ 100 mls/hr 06/29/17 00:45 06/29/17 01:04 Normal Saline - IV 100 mls/hr ASDIR ANISHA Administration Dextrose/Sodium Chloride 1,000 mls @ 75 mls/hr 06/29/17 02:30 06/29/17 03:51 D5-1/2ns - IV 75 mls/hr ASDIR ANISHA Administration Morphine Sulfate 2 mg 06/29/17 02:13 06/29/17 06:27 Morphine Sulfate IVPUSH 2 mg Q6H PRN Administration PAIN Ondansetron HCl 4 mg 06/29/17 02:12 06/29/17 06:26 Zofran Injection IVPUSH 4 mg Q8H PRN Administration NAUSEA Pantoprazole Sodium 40 mg 06/29/17 02:15 06/29/17 09:53 Protonix - PO Not Given DAILY ANISHA Thiamine HCl 100 mg 06/29/17 02:15 06/29/17 09:52 Vitamin B1 - PO Not Given DAILY ANISHA RUQ US: hepatic steatosis CT abd/pelvis: nothing acute ASSESSMENT/PLAN: 57M w/ hx of recurrent pancreatitis, significant alcohol consumption, umbilical hernia repair, nephrolithiasis, HTN, HLD, and NIDDM who presents with acute abdominal pain, nausea, and emesis, found to have a lactic acidosis. #lactic acidosis -likely type B in setting of chronic alcohol use and probable metformin use -2.4 --> 7.1 --> 1.4 -resolved with fluids -no fever, no leukocytosis, no imaging findings of any acute infectious process -infection unlikely, would not recommend further antibiotic use. Zosyn discontinued. -continue pain control, fluids, protonix, and zofran -rest of care per hospitalist team Plan discussed with attending, Dr. Astudillo Dispo: We will continue to follow the patient. Thank you for this consultative opportunity. -Sonu Hoang MD PGY1 Visit type - Emergency Visit Emergency Visit: Yes ED Registration Date: 06/29/17 Care time: The patient presented to the Emergency Department on the above date and was hospitalized for further evaluation of their emergent condition. - New Patient This patient is new to me today: Yes Date on this admission: 06/29/17 - Critical Care Critical Care patient: No
--- NOTE | 2017-06-29 12:42 | PN ---
Teaching Attending Note Name of Resident: Sonu Hoang ATTENDING PHYSICIAN STATEMENT I saw and evaluated the patient. I reviewed the resident's note and discussed the case with the resident. I agree with the resident's findings and plan as documented. SUBJECTIVE: feels well now no abd pain no vomiting had similar episode 10 years ago +ETOH use OBJECTIVE: Vital Signs Period Temp Pulse Resp BP Sys/[place] Pulse Ox Last 24 Hr 97.6 F-98.8 F 68-74 18-20 132-154/72-93 99-100 cor-rrr lungs clear abd soft,nt ext no edema CBC, BMP 06/29/17 08:25 06/29/17 08:25 ASSESSMENT AND PLAN: lactic acidosis resolved- suspect secondary to ETOH/vomiting- now resolved no need for antibiotics will d/c please call back if needed Problem List - Problems (1) Lactic acidosis Code(s): E87.2 - ACIDOSIS
--- NOTE | 2017-06-29 15:02 | PN ---
Progress Note (short form) - Note Progress Note: This is a service case and was called in at 2 am. Please refer to the gi composition instructor Jun 28. Moni the unit clek and nurse was informed.
--- NOTE | 2017-06-29 18:40 | PN ---
Progress Note, Physician History of Present Illness: Pt feeling better and denies any abdominal pain - Current Medication List Current Medications: Active Medications Folic Acid (Folic Acid -) 1 mg PO DAILY [facility] Last Admin: 06/29/17 09:53 Dose: Not Given Dextrose/Sodium Chloride (D5-1/2ns -) 1,000 mls @ 75 mls/hr IV ASDIR [facility] Last Admin: 06/29/17 03:51 Dose: 75 mls/hr Morphine Sulfate (Morphine Sulfate) 2 mg IVPUSH Q6H PRN PRN Reason: PAIN Last Admin: 06/29/17 06:27 Dose: 2 mg Ondansetron HCl (Zofran Injection) 4 mg IVPUSH Q8H PRN PRN Reason: NAUSEA Last Admin: 06/29/17 06:26 Dose: 4 mg Pantoprazole Sodium (Protonix -) 40 mg PO DAILY [facility] Last Admin: 06/29/17 09:53 Dose: Not Given Thiamine HCl (Vitamin B1 -) 100 mg PO DAILY [facility] Last Admin: 06/29/17 09:52 Dose: Not Given - Objective Vital Signs: Vital Signs Temperature 97.8 F 06/29/17 18:00 Pulse Rate 68 06/29/17 18:00 Respiratory Rate 20 06/29/17 18:00 Blood Pressure 141/92 06/29/17 18:00 O2 Sat by Pulse Oximetry (%) 100 06/29/17 10:00 HENT: Yes: WNL Neck: Yes: WNL, Supple Cardiovascular: Yes: WNL, Regular Rate and Rhythm Respiratory: Yes: WNL, Regular, CTA Bilaterally Gastrointestinal: Yes: WNL, Normal Bowel Sounds, Soft Musculoskeletal: Yes: WNL Extremities: Yes: WNL Edema: No Labs: CBC, BMP 06/29/17 08:25 06/29/17 08:25 Problem List - Problems (1) Abdominal pain Assessment/Plan: ?Due to etoh use Cont IVF Lactic acid elevation due to vomiting IV zosyn dc'ed GI consult Advance diet ?DC planning for am Code(s): R10.9 - UNSPECIFIED ABDOMINAL PAIN Qualifiers: Abdominal location: epigastric Qualified Code(s): R10.13 - Epigastric pain (2) Diabetes Assessment/Plan: Cont sliding scale w/ coverage as diet is advanced Code(s): E11.9 - TYPE 2 DIABETES MELLITUS WITHOUT COMPLICATIONS (3) HTN (hypertension) Assessment/Plan: BP stable Pt does not recall his home medications Cont to monitor Code(s): I10 - ESSENTIAL (PRIMARY) HYPERTENSION
--- NOTE | 2017-06-29 19:50 | HP ---
Admitting History and Physical - Admission Chief Complaint: Pt was seen and examined on 06/28/17 however note was not saved History of Present Illness: Pt is a 57 y/o male w/ PMH significant for etoh abuse, recurrent pancreatitis, nephrolithiasis, HTN, HLD, and NIDDM. Pt presented to the ER w/ abdominal pain wc was epigastric and assocaited w/ nausea and vomiting. Pt was away from home and had been drinking etoh. In the ER pt had abdominal US and ct scan abd/ pelvis wc did not show any acute pathology. However on admission his lactic acid was initially 2 and then repeat labs showed lactic acid of 7 and pt was given bolus of NS. History Source: Patient, Medical Record - Past Medical History Cardiovascular: Yes: HTN, Hyperlipdemia Gastrointestinal: Yes: Other (Pancreatitis) Endocrine: Yes: Diabetes Mellitus - Past Surgical History Past Surgical History: Yes: Hernia Repair - Smoking History Smoking history: Never smoked Have you smoked in the past 12 months: No - Alcohol/Substance Use Hx Alcohol Use: Yes Home Medications - Allergies Allergies/Adverse Reactions: Allergies Allergy/AdvReac Type Severity Reaction Status Date / Time No Known Drug Allergies Allergy Verified 06/28/17 14:46 - Home Medications Home Medications: Ambulatory Orders Jentadueto 2.5 mg-500 mg Tab PO BID 06/29/17 Metoprolol Succinate [Toprol XL -] 12.5 mg PO DAILY 06/29/17 Family Disease History - Family Disease History Family History: Unremarkable Review of Systems - Review of Systems Constitutional: reports: Loss of Appetite Eyes: reports: No Symptoms HENT: reports: No Symptoms Neck: reports: No Symptoms Cardiovascular: reports: No Symptoms Respiratory: reports: No Symptoms Gastrointestinal: reports: Abdominal Pain, Nausea, Vomiting Genitourinary: reports: No Symptoms Physical Examination Vital Signs: Vital Signs Temperature 97.8 F 06/29/17 18:00 Pulse Rate 68 06/29/17 18:00 Respiratory Rate 20 06/29/17 18:00 Blood Pressure 141/92 06/29/17 18:00 O2 Sat by Pulse Oximetry (%) 100 06/29/17 10:00 Constitutional: Yes: No Distress Eyes: Yes: WNL HENT: Yes: WNL Neck: Yes: WNL, Supple Cardiovascular: Yes: WNL, Regular Rate and Rhythm Respiratory: Yes: WNL, Regular, CTA Bilaterally Gastrointestinal: Yes: WNL, Normal Bowel Sounds, Soft Extremities: Yes: WNL Edema: No Neurological: Yes: WNL, Alert, Oriented ...Motor Strength: WNL Labs: CBC, BMP 06/29/17 08:25 06/29/17 08:25 Problem List - Problems (1) Abdominal pain Assessment/Plan: ?Due to etoh use Cont IVF Pt started empirically on IV zosyn due to elevated Lactic acid Follow cultures ID consult GI consult Advance diet as tolerated Code(s): R10.9 - UNSPECIFIED ABDOMINAL PAIN Qualifiers: Abdominal location: epigastric Qualified Code(s): R10.13 - Epigastric pain (2) HTN (hypertension) Assessment/Plan: BP stable Pt does not recall his home medications Cont to monitor Code(s): I10 - ESSENTIAL (PRIMARY) HYPERTENSION (3) Diabetes Assessment/Plan: Will start sliding scale w/ coverage as diet is advanced Code(s): E11.9 - TYPE 2 DIABETES MELLITUS WITHOUT COMPLICATIONS
[2017-06-29 20:43] LABS: TROPONIN I 0.02 ng/ml (0.00-0.05)
[2017-06-29] MEDS: INSULIN SLIDING SCALE (NOVOLOG) 1 VIAL SQ SCH (22:08)
[2017-06-30] MEDS: INSULIN SLIDING SCALE (NOVOLOG) 1 VIAL SQ SCH ×2 (06:20→12:22)
[2017-06-30] MEDS: DEXTROSE 5%-0.45% SALINE 1,000 ML IV SCH (06:20)
[2017-06-30] MEDS: PANTOPRAZOLE 40 MG TABLET (FP) PO SCH (10:37)
[2017-06-30] MEDS: FOLIC ACID 1 MG TABLET (FP) PO SCH (10:38)
[2017-06-30] MEDS: THIAMINE HCL 100 MG TABLET (FP) PO SCH (10:38)
--- NOTE | 2017-06-30 10:45 | CON.GI ---
Consult Consult Specialty:: GI Referred by:: Dr. Estrada Reason for Consultation:: Abdominal pain - History of Present Illness History of Present Illness: A 57 yom with history of ETOH abuse was on the bus returning from "[place]" on Wednesday when hew acutely developed nausea, vomiting and abdominal pain. He ate fast food on Wednesday and Wednesday. Denies fever, chills, diarrhea, joint, skin symptoms. Denies weight loss, melena, hematochezia. Denies ill contacts, or recurrent history of the same symptoms. Came to ED on Wednesday with the above complaints. [place] back to normal yesterday. Asymptomatic today. - History Source History Provided By: Patient, Medical Record Limitations to Obtaining History: No Limitations - Past Medical History Cardio/Vascular: Yes: HTN, Hyperlipdemia Gastrointestinal: Yes: Other (Pancreatitis) Endocrine: Yes: Diabetes Mellitus - Past Surgical History Past Surgical History: Yes: Hernia Repair - Alcohol/Substance Use Hx Alcohol Use: No - Smoking History Smoking history: Never smoked Have you smoked in the past 12 months: No Home Medications - Allergies Allergies/Adverse Reactions: Allergies Allergy/AdvReac Type Severity Reaction Status Date / Time No Known Drug Allergies Allergy Verified 06/28/17 14:46 - Home Medications Home Medications: Ambulatory Orders Jentadueto 2.5 mg-500 mg Tab PO BID 06/29/17 Metoprolol Succinate [Toprol XL -] 12.5 mg PO DAILY 06/29/17 Family Disease History - Family Disease History Family History: Unremarkable (noncontributory) Review of Systems Findings/Remarks: Please refer to H&P Physical Exam-GI Vital Signs: Vital Signs Temperature 98.3 F 06/30/17 02:00 Pulse Rate 70 06/30/17 02:00 Respiratory Rate 18 06/30/17 02:00 Blood Pressure 143/71 06/30/17 02:00 O2 Sat by Pulse Oximetry (%) 100 06/29/17 21:00 Constitutional: Yes: Well Nourished, No Distress, Calm Eyes: Yes: Conjunctiva Clear HENT: Yes: Atraumatic Neck: Yes: Supple Cardiovascular: Yes: Regular Rate and Rhythm Respiratory: Yes: Regular ...Auscultate: Yes: Normoactive Bowel Sounds ...Palpate: Yes: Soft. No: Firm/Rigid, Guarding, Tenderness Neurological: Yes: Alert, Oriented Labs: CBC, BMP 06/29/17 08:25 06/29/17 08:25 Laboratory Results - last 24 hr 06/29/17 06/29/17 06/29/17 08:25 19:52 22:08 POC Glucometer 138 Lactic Acid 1.2 Creatine Kinase 320 H Creatine Kinase Index 0.8 CK-MB (CK-2) 2.725 Troponin I 0.02 06/30/17 05:36 POC Glucometer 159 Lactic Acid Creatine Kinase Creatine Kinase Index CK-MB (CK-2) Troponin I Laboratory Tests 06/28/17 06/28/17 06/28/17 16:59 16:59 17:00 WBC 7.0 RBC 3.94 L Hgb 12.6 Hct 36.2 MCV 91.9 MCH 32.1 MCHC 35.0 RDW 15.6 Plt Count 111 L MPV 8.5 Neutrophils % 87.1 H Lymphocytes % 8.2 Monocytes % 3.9 Eosinophils % 0.4 Basophils % 0.4 Sodium Potassium Chloride Carbon Dioxide Anion Gap BUN Creatinine Creat Clearance w eGFR POC Glucometer Random Glucose Lactic Acid Calcium Total Bilirubin AST ALT Alkaline Phosphatase Creatine Kinase Creatine Kinase Index CK-MB (CK-2) Troponin I Total Protein Albumin Lipase 126 Urine Color Ltyellow Urine Appearance Clear Urine pH 7.0 D Ur Specific [place] 1.012 Urine Protein 2+ H Urine Glucose (UA) 3+ H Urine Ketones Negative Urine Blood Negative Urine Nitrite Negative Urine Bilirubin Negative Urine Urobilinogen Negative Ur Leukocyte Esterase Negative 06/28/17 06/28/17 06/28/17 17:00 17:00 21:10 WBC RBC Hgb Hct MCV MCH MCHC RDW Plt Count MPV Neutrophils % Lymphocytes % Monocytes % Eosinophils % Basophils % Sodium 138 Potassium 4.1 Chloride 104 Carbon Dioxide 27 Anion Gap 7 L BUN 13 D Creatinine 1.1 D Creat Clearance w eGFR > 60 POC Glucometer Random Glucose 208 H D Lactic Acid 2.4 H* 7.1 H* Calcium 9.0 Total Bilirubin 1.1 H D AST 27 ALT 26 Alkaline Phosphatase 57 Creatine Kinase Creatine Kinase Index CK-MB (CK-2) Troponin I Total Protein 8.1 Albumin 4.4 Lipase Urine Color Urine Appearance Urine pH Ur Specific [place] Urine Protein Urine Glucose (UA) Urine Ketones Urine Blood Urine Nitrite Urine Bilirubin Urine Urobilinogen Ur Leukocyte Esterase 06/28/17 06/29/17 06/29/17 22:52 04:22 08:25 WBC 4.2 D RBC 3.80 L Hgb 12.2 Hct 35.2 L MCV 92.7 MCH 32.0 MCHC 34.5 RDW 15.9 Plt Count 104 L MPV 8.6 Neutrophils % 70.5 Lymphocytes % 20.2 D Monocytes % 8.1 D Eosinophils % 0.8 D Basophils % 0.4 Sodium Potassium Chloride Carbon Dioxide Anion Gap BUN Creatinine Creat Clearance w eGFR POC Glucometer Random Glucose Lactic Acid 1.4 Calcium Total Bilirubin AST ALT Alkaline Phosphatase Creatine Kinase 271 Creatine Kinase Index 1.3 CK-MB (CK-2) 3.710 H Troponin I Total Protein Albumin Lipase Urine Color Urine Appearance Urine pH Ur Specific [place] Urine Protein Urine Glucose (UA) Urine Ketones Urine Blood Urine Nitrite Urine Bilirubin Urine Urobilinogen Ur Leukocyte Esterase 06/29/17 06/29/17 06/29/17 08:25 08:25 19:52 WBC RBC Hgb Hct MCV MCH MCHC RDW Plt Count MPV Neutrophils % Lymphocytes % Monocytes % Eosinophils % Basophils % Sodium 140 Potassium 3.9 Chloride 106 Carbon Dioxide 27 Anion Gap 7 L BUN 12 Creatinine 1.1 Creat Clearance w eGFR > 60 POC Glucometer Random Glucose 149 H D Lactic Acid 1.2 Calcium 8.2 L Total Bilirubin 1.0 AST 26 ALT 21 Alkaline Phosphatase 50 Creatine Kinase 320 H Creatine Kinase Index 0.8 CK-MB (CK-2) 2.725 Troponin I 0.02 Total Protein 6.9 Albumin 3.8 Lipase Urine Color Urine Appearance Urine pH Ur Specific [place] Urine Protein Urine Glucose (UA) Urine Ketones Urine Blood Urine Nitrite Urine Bilirubin Urine Urobilinogen Ur Leukocyte Esterase 06/29/17 06/30/17 22:08 05:36 WBC RBC Hgb Hct MCV MCH MCHC RDW Plt Count MPV Neutrophils % Lymphocytes % Monocytes % Eosinophils % Basophils % Sodium Potassium Chloride Carbon Dioxide Anion Gap BUN Creatinine Creat Clearance w eGFR POC Glucometer 138 159 Random Glucose Lactic Acid Calcium Total Bilirubin AST ALT Alkaline Phosphatase Creatine Kinase Creatine Kinase Index CK-MB (CK-2) Troponin I Total Protein Albumin Lipase Urine Color Urine Appearance Urine pH Ur Specific [place] Urine Protein Urine Glucose (UA) Urine Ketones Urine Blood Urine Nitrite Urine Bilirubin Urine Urobilinogen Ur Leukocyte Esterase Imaging - Results Cat Scan: Report Reviewed (no acute GI pathology) Problem List - Problems (1) Gastroenteritis and colitis, viral Code(s): A08.4 - VIRAL INTESTINAL INFECTION, UNSPECIFIED (2) Gastroenteritis due to food toxin Code(s): K52.1 - TOXIC GASTROENTERITIS AND COLITIS Assessment/Plan A 57 yom with acute onset, mild GI symptoms/signs suggestive of ether viral, or food-related gastroenteritis. The symptoms have completely resolved. Recommend lactose free, low fat diet for the next 1-2 weeks. OK to d/c from GI stand point Screening colonoscopy - average risk, age based - as outpatient
[2017-06-30 13:10] VITALS: BP 148/76; PULSE 80; TEMP 98.2
== END 2017-06-30 14:11 | disposition home or self-care (01) | DRG 394 ==
LOC: JER 14:36 → JERBED 06-29 00:57 → UNDOADMIN 06-29 01:04 → J5S 06-29 05:37
PROVIDERS: ADMIT Internal Medicine; ATTEND Internal Medicine
DX: K52.1 Toxic gastroenteritis and colitis (principal); E87.2 Acidosis; A08.4 Viral intestinal infection, unspecified; I10 Essential (primary) hypertension; E78.5 Hyperlipidemia, unspecified; E11.9 Type 2 diabetes mellitus without complications; F10.10 Alcohol abuse, uncomplicated
CPT/HCPCS: 36415; 74177-TC; 76705-TC; 80053; 81003; 81015; 82550; 82553; 83605; 83690; 84484; 85025; 87040; 99283-25

== ENCOUNTER 2021-01-29 09:11 | Emergency (ER) | payer MEDICARE, OTHER ==
[2021-01-29 09:46] VITALS: BMI 27.8
[2021-01-29] MEDS ORDERED: SODIUM CHLORIDE 0.9% 500 ML INFUS.BAG IV ONE ×2 (09:57→11:46)
[2021-01-29] MEDS ORDERED: ONDANSETRON 4 MG/2 ML VIAL IVPUSH ONE (09:57)
[2021-01-29] MEDS ORDERED: morphine CARPU-JECT 2 MG/1 ML DISP.SYRIN IVPUSH ONE (10:00)
[2021-01-29] MEDS ORDERED: MORPHINE SULFATE 2 MG/ML VIAL ONE (10:08)
[2021-01-29] MEDS ORDERED: ONDANSETRON 4 MG/2 ML VIAL ONE (10:09)
[2021-01-29 11:00] LABS: BASO % 0.3 % (0-2.0); HEMATOCRIT 32.9 % (35.4-49); HEMOGLOBIN 11.6 GM/dL (11.7-16.9); MCH 29.6 pg (25.7-33.7); MCHC 35.2 g/dl (32.0-35.9); MEAN CELL VOLUME 83.9 fl (80-96); MEAN PLT VOLUME 7.2 fl (7.5-11.1); MONO % 4.2 % (3.8-10.2); NEUT % 88.5 % (42.8-82.8); PLATELET COUNT 161 10^3/uL (134-434); RBC 3.92 M/mm3 (4.00-5.60); RDW 15.9 % (11.9-15.9); WHITE BLOOD COUNT 8.3 K/mm3 (4.0-10.0)
[2021-01-29 11:19] LABS: CALCIUM 9.9 mg/dL (8.5-10.1)
[2021-01-29 11:20] LABS: BLOOD UREA NITROGEN 15.7 mg/dL (7-18); MAGNESIUM 1.7 mg/dL (1.8-2.4)
[2021-01-29 11:25] LABS: CREATININE 1.4 mg/dL (0.55-1.3); TOT PROT 8.5 g/dl (6.4-8.2)
[2021-01-29 11:26] LABS: BILIRUBIN,TOTAL 2.6 mg/dL (0.2-1)
[2021-01-29 11:29] LABS: LACTIC ACID 4.2 mmol/L (0.4-2.0)
[2021-01-29] MEDS ORDERED: METOCLOPRAMIDE HCL INJECTION 10 MG/2 ML VIAL IVPUSH ONE (11:56)
[2021-01-29] MEDS ORDERED: METOCLOPRAMIDE HCL INJECTION 10 MG/2 ML VIAL ONE (11:59)
[2021-01-29 16:15] VITALS: BP 172/76; PULSE 74; TEMP 98.3
[2021-01-29 16:44] LABS: LACTIC ACID 3.3 mmol/L (0.4-2.0)
== END 2021-01-29 18:20 | disposition home or self-care (01) ==
LOC: JER 09:11
PROC: 3E033GC Introduction of Other Therapeutic Substance into Peripheral Vein, Percutaneous Approach (ICD-10-PCS; principal; 2021-01-29)
PROC: 3E033NZ Introduction of Analgesics, Hypnotics, Sedatives into Peripheral Vein, Percutaneous Approach (ICD-10-PCS; 2021-01-29)
PROC: 3E033GC Introduction of Other Therapeutic Substance into Peripheral Vein, Percutaneous Approach (ICD-10-PCS; 2021-01-29)
DX: R10.84 Generalized abdominal pain (principal)
CPT/HCPCS: 36415; 71046-TC-FY; 74177-TC; 80053; 83605; 83690; 83735; 85025; 99285-25; C9803; Q9967; U0003; U0005

== ENCOUNTER 2021-11-25 04:32 | Day surgery (SDC) | payer BC ==
[2021-11-24 11:52] VITALS: BMI 29.0
[2021-11-25] MEDS ORDERED: TRIAMCINOLONE ACET 40MG/1ML VIAL ONE (07:12)
[2021-11-25] MEDS ORDERED: BUPIVACAINE HCL/PF 0.5% (5MG/ML) 10 ML VIAL ONE (07:12)
[2021-11-25] MEDS ORDERED: LIDOCAINE HCL/PF 1% SDV 5ML VIAL ONE (07:12)
[2021-11-25] MEDS ORDERED: LIDOCAINE HCL 1%, 10 MG/ML (50 mL VIAL) NR ONE (10:26)
[2021-11-25] MEDS ORDERED: TRIAMCINOLONE ACETONIDE 40 MG/ML 10 ML VIAL NR ONE (10:27)
[2021-11-25] MEDS ORDERED: BUPIVACAINE HCL/PF 0.5% (5 MG/ML) 30 ML VIAL IJ ONE (10:28)
[2021-11-25] MEDS ORDERED: IOHEXOL 180 MG/1 ML ML IJ ONE (10:31)
[2021-11-25 12:13] VITALS: BP 128/76; PULSE 78; TEMP 98
== END 2021-11-25 11:02 | disposition home or self-care (01) ==
LOC: JASU-SURG 04:32
PROVIDERS: ATTEND Pain Medicine Pain Medicine
PROC: 3E0U3BZ Introduction of Anesthetic Agent into Joints, Percutaneous Approach (ICD-10-PCS; 2021-11-25)
PROC: 3E0U33Z Introduction of Anti-inflammatory into Joints, Percutaneous Approach (ICD-10-PCS; principal; 2021-11-25 10:30)
DX: M53.3 Sacrococcygeal disorders, not elsewhere classified (principal); I10 Essential (primary) hypertension; E11.9 Type 2 diabetes mellitus without complications
CPT/HCPCS: 76000-TC-FY

== ENCOUNTER 2021-12-20 19:44 | Emergency (ER) | payer BC ==
[2021-12-20 19:54] VITALS: BP 156/84; PULSE 94; TEMP 97.8; BMI 24.7
[2021-12-20] MEDS ORDERED: LACTATED RINGERS SOLUTION 1000 ML INFUS.BAG IV ONE ×2 (21:11→23:04)
[2021-12-20] MEDS ORDERED: FAMOTIDINE 20 MG/50 ML IVPB 20 MG/50 ML MG IVPB ONE ×2 (21:12→21:17)
[2021-12-20] MEDS ORDERED: MAG HYDROX/AL HYDROX/SIMETH 30 ML UNIT-DOSE CUP PO ONE (21:12)
[2021-12-20] MEDS ORDERED: MAG HYDROX/AL HYDROX/SIMETH 30 ML UNIT-DOSE CUP ONE (21:17)
[2021-12-20 21:57] LABS: BASO % 0.3 % (0-2.0); EOS % 0.8 % (0-4.5); HEMATOCRIT 34.8 % (35.4-49); HEMOGLOBIN 11.7 GM/dL (11.7-16.9); LYMPH % 10.4 % (8-40); MCH 26.6 pg (25.7-33.7); MCHC 33.7 g/dl (32.0-35.9); MEAN CELL VOLUME 78.7 fl (80-96); MEAN PLT VOLUME 7.5 fl (7.5-11.1); MONO % 9.6 % (3.8-10.2); NEUT % 78.9 % (42.8-82.8); PLATELET COUNT 165 10^3/uL (134-434); RBC 4.42 M/mm3 (4.00-5.60); RDW 14.9 % (11.9-15.9); WHITE BLOOD COUNT 9.5 K/mm3 (4.0-10.0)
[2021-12-20 22:16] LABS: CALCIUM 9.1 mg/dL (8.5-10.1)
[2021-12-20 22:17] LABS: ALBUMIN 2.9 g/dl (3.4-5.0); BLOOD UREA NITROGEN 37.1 mg/dL (7-18)
[2021-12-20 22:19] LABS: CREATININE 1.5 mg/dL (0.55-1.3)
[2021-12-20 22:21] LABS: BILIRUBIN,TOTAL 1.1 mg/dL (0.2-1); TOT PROT 8.9 g/dl (6.4-8.2)
== END 2021-12-21 00:21 | disposition home or self-care (01) ==
LOC: JER 19:44
PROC: 3E033NZ Introduction of Analgesics, Hypnotics, Sedatives into Peripheral Vein, Percutaneous Approach (ICD-10-PCS; principal; 2021-12-20)
DX: K52.9 Noninfective gastroenteritis and colitis, unspecified (principal)
CPT/HCPCS: 36415; 71046-TC-FY; 80053; 83690; 85025; 93005; 93010; 96365; 99284-25